=== PATIENT | female | born 1985 | race Caucasian/White ===

== ENCOUNTER 2016-12-06 07:45 | Emergency (ER) | payer OTHER ==
[~2016-12-06 07:45] MED LIST: IBUP600T26 PO
[2016-12-06 08:05] VITALS: BP 146/92; PULSE 120; RESP 24; O2SAT 96
[2016-12-06 08:09] VITALS: BP 146/92; PULSE 120; RESP 24; O2SAT 96
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
[2016-12-06 08:53] LABS: AUTOMATED NEUTROPHIL # 12.9 TH/MM3 (1.8-7.7); BASOPHIL # 0.1 TH/MM3 (0-0.2); BASOPHIL % 0.7 % (0.0-2.0); EOSINOPHIL # 0.1 TH/MM3 (0-0.4); EOSINOPHIL % 0.5 % (0.0-4.0); HEMATOCRIT 39.7 % (35.0-46.0); HEMO FLAGS DIFF FINAL; LYMPH % 24.9 % (9.0-44.0); LYMPHOCYTE # 4.7 TH/MM3 (1.0-4.8); MEAN CELL VOLUME 90.3 FL (80.0-100.0); MEAN CORPUSCULAR HEMOGLOBIN 30.8 PG (27.0-34.0); MEAN CORPUSCULAR HGB CONC 34.1 % (32.0-36.0); MONO % 5.6 % (0.0-8.0); NEUT % 68.3 % (16.0-70.0); PLATELET COUNT 441 TH/MM3 (150-450); RED CELL DISTRIBUTION WIDTH 13.9 % (11.6-17.2); WHITE BLOOD COUNT 18.9 TH/MM3 (4.0-11.0)
[2016-12-06] MEDS ORDERED: ZOLO100T PO (09:03)
[2016-12-06] MEDS ORDERED: OMEP20TA PO (09:03)
[2016-12-06 09:50] LABS: AMPHETAMINE, URINE NEG (NEG); BARBITURATES, URINE NEG (NEG); COCAINE, URINE POS (NEG)
[2016-12-06] MEDS ORDERED: NICOTINE 21 MG/24 HR PATCH TD ONE (10:00)
[2016-12-06 10:02] LABS: ALKALINE PHOSPHATASE 89 U/L (45-117); ALT (GPT) 36 U/L (10-53); TOTAL BILIRUBIN ADULT 0.3 MG/DL (0.2-1.0)
[2016-12-06 10:07] LABS: AST (GOT) 27 U/L (15-37); BICARBONATE 18.6 MEQ/L (21.0-32.0); BLOOD UREA NITROGEN 21 MG/DL (7-18)
[2016-12-06] MEDS ORDERED: DIAZEPAM 10 MG TAB PO ONE (10:15)
[2016-12-06] MEDS ORDERED: SERTRALINE HCL 100 MG TAB PO ONE (10:15)
[2016-12-06 10:22] LABS: GLOMERULAR FILTRATION RATE 58 ML/MIN (>89)
[2016-12-06 10:23] LABS: ANION GAP 13 MEQ/L (5-15); CHLORIDE 109 MEQ/L (98-107); POTASSIUM 3.6 MEQ/L (3.5-5.1); SODIUM (NA) 141 MEQ/L (136-145)
[2016-12-06 11:27] VITALS: BP 143/96; PULSE 118; RESP 16; O2SAT 95
[2016-12-06 15:13] VITALS: BP 132/68; PULSE 68; RESP 16
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
== END 2016-12-06 16:52 | disposition home or self-care (01) ==
LOC: NEPC 07:45 → NEPJ 16:52
DX: F14.10 Cocaine abuse, uncomplicated (principal); F19.14 Other psychoactive substance abuse with psychoactive substance-induced mood disorder; F17.210 Nicotine dependence, cigarettes, uncomplicated
CPT/HCPCS: 80053; 80307; 84703; 85025; 99283

== ENCOUNTER 2017-01-23 23:38 | Emergency (ER) | payer OTHER ==
[~2017-01-23] VITALS: Ht 152.4 cm; Wt 70.0 kg
[~2017-01-23 23:38] MED LIST changes: -IBUP600T26 PO; +OMEP20TA PO; +ZOLO100T PO
[2017-01-23 23:45] VITALS: BP 149/100; PULSE 92; RESP 18; TEMP 98; O2SAT 98
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
[2017-01-24] MEDS ORDERED: MORPHINE SULFATE 4 MG/ML INJ IV PUSH ONE (03:45)
[2017-01-24] MEDS ORDERED: ONDANSETRON HCL 4 MG/2 ML VIAL IV PUSH ONE (03:45)
== END 2017-01-24 08:54 | disposition home or self-care (01) ==
LOC: NEPC 23:38
DX: S09.90XA Unspecified injury of head, initial encounter (principal); S80.02XA Contusion of left knee, initial encounter; S80.01XA Contusion of right knee, initial encounter; S40.022A Contusion of left upper arm, initial encounter; S40.021A Contusion of right upper arm, initial encounter; D64.9 Anemia, unspecified; F17.210 Nicotine dependence, cigarettes, uncomplicated; F10.10 Alcohol abuse, uncomplicated; X58.XXXA Exposure to other specified factors, initial encounter
CPT/HCPCS: 70450